=== PATIENT | female | born 1980 | race Caucasian/White ===

== ENCOUNTER 2024-10-18 12:55 | Outpatient (AMB) | payer BC, SELFPAY ==
--- NOTE | 2024-10-18 13:13 | MHC.PC.OV ---
Vital Signs 10/18/24 13:15 Height 5 ft 5.75 in Weight 136 lb BMI 22.1 BP 130/68 Blood Pressure Location Lt brachial Position Sitting Pulse 89 Pulse Source Pulse Oximeter Temp 97.3 F Temp Source Temporal Artery Scan Pulse Oximetry (%) 99 Oxygen Delivery Method Room Air Intake Visit Reasons: establish care Intake Note: Patient is a new patient here to establish care for Wellness. Transferring care from [place] ([facility]) . Medical records have been requested and have not received. Fruit Grower Required: No Ice Guard Inspector: Not Required per policy Accompanied by: Self / Same As Patient Allergies No Known Allergies Allergy (Verified 10/18/24 13:26) Medication List - Last Reconciled 10/18/24 by Bre Barbosa PA-C Unobtainable Tobacco use date assessed: 10/18/24 Dental Screening Dental Screen Date: 10/18/24 Did you have a dental visit in the last 12 months?: Yes Did you have a dental problem in the last 6 months where you did not have access to dental care?: No Was dental information given to patient?: Patient has dentist HPI establish care HPI Details 44-year-old female coming to the office with the 1st time. Previously being seen in [place] practice. She follows with [facility] as well as [facility] in his up-to-date on her Pap smears and mammograms. She is a current smoker smokes about 5 cigarettes a day and is not interested in quitting at this time. Follows with an vacuum spindle sander through [place] for monthly allergy shots. She has no acute concerns today. 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 1. Little interest or pleasure in doing things: not at all 2. Feeling down, depressed, or hopeless: not at all 3. Trouble falling or staying asleep, or sleeping too much: not at all 4. Feeling tired or having little energy: not at all 5. Poor appetite or overeating: not at all 6. Feeling bad about yourself - or that you are a failure or have let yourself or your family down: not at all 7. Trouble concentrating on things, such as reading the newspaper or watching television: not at all 8. Moving or speaking so slowly that other people could have noticed. Or the opposite - being so fidgety or restless that you have been moving around a lot more than usual: not at all 9. Thoughts that you would be better off or of hurting yourself in some way: not at all Total score: 0 Depression Screening Interpretation: Negative Depression Screening Done: Yes 73206 - PHQ-9 Billing: Yes Source: Developed by Drs. Gurwinder Mayen, Ayla Mitchell, Tra Cortes and colleagues, with an educational zulema from [employer]. Thrive Questionnaire I am a: Patient What is your living situation today?: I have a steady place to live Within the past 12 months, did the food you bought not last and you didn't have the money to get more?: Never true Within the past 12 months, did you worry whether your food would run out before you got money to buy more?: Never true Do you have trouble paying for medicines?: No Do you have trouble getting transportation to medical appointments?: No Do you have trouble paying your heating and electricity bill?: No Do you have trouble taking care of your child, family member or friend?: No Do you have trouble with day-to-day activities such as bathing, preparing meals, shopping, managing finances, etc.?: No Are you currently unemployed and looking for a job?: No Are you interested in more education?: No Please select the resources that you would like help with: None Currently or been in a relationship where the following occur: No concerns reported THRIVE Score: 0 AUDIT C Alcohol Use Questionnaire (AUDIT-C) 1. How often do you have a drink containing alcohol?: Monthly or less 2. How many drinks containing alcohol do you have on a typical day when you are drinking?: 1 or 2 3. How often do you have six or more drinks on one occasion?: Never Total Score: 1 LAYLA-7 AMB Questionnaire LAYLA-7 Feeling nervous, anxious, or on edge: 0 = Not at all Not being able to stop or control worryin = Not at all Worrying too much about different things: 0 = Not at all Trouble relaxin = Not at all Being so restless that it is hard to sit still: 0 = Not at all Becoming easily annoyed or irritable: 0 = Not at all Feeling afraid as if something awful might happen: 0 = Not at all Total LAYLA-7 score (0-4 normal; 5-9 mild; 10-14 moderate; 15-21 severe): 0 Source: Developed by Drs. Gurwinder Mayen, Ayla Mitchell, Tra Cortes and colleagues, with an educational zulema from [employer]. LAYLA-7 Assessment Billing LAYLA-7 Assessment Tool: LAYLA-7 Assessment 19198 Review of Systems Const Denies body aches, Denies chills, Denies fever(s), Denies headache(s) and Denies poor appetite Eyes Reports no additional complaints ENT Denies dysphagia, Denies dizziness, Denies headache(s) and Denies odynophagia Card Denies chest pain, Denies syncope, Denies edema, Denies irregular heart rhythm, Denies lightheadedness and Denies dyspnea Resp Denies cough and Denies dyspnea GI Denies abdominal pain, Denies constipation, Denies dysphagia, Denies diarrhea, Denies nausea, Denies odynophagia and Denies vomiting Reports no additional complaints Musc Reports no additional complaints and Denies abnormal gait Skin/Breast Reports system reviewed and no additional complaints, except as documented Neuro Denies abnormal gait, Denies dizziness, Denies syncope and Denies headache(s) Psych Reports no additional complaints Physical exam (Primary Care) Vital Signs: Last Vital Signs Temp 97.3 F 10/18/24 13:15 Pulse 89 10/18/24 13:15 BP 130/68 10/18/24 13:15 Pulse Ox 99 10/18/24 13:15 Oxygen Delivery Method Room Air 10/18/24 13:15 BMI result Body Mass Index 22.1 Tobacco/Smoking Status: Tobacco use Status Tobacco use date assessed 10/18/24 10/18/24 13:25 Patient Tobacco Use Status Current everyday Tobacco 10/18/24 13:25 Tobacco use type Cigarette 10/18/24 13:25 e-Cigarette/Vaping Use Never Used 10/18/24 13:25 Are you ready to quit: No Tobacco cessation counseling provided: Yes Items discussed: Nicotine replacement Relapse Prevention: discussed dietary, exercise and/or lifestyle changes CPT code: Less than 3 minutes PHQ-9: PHQ-9 Score PHQ-9: Total score 0 10/18/24 13:25 Depression Screening Interpretation: Negative Currently or been in a relationship where the following occur: No concerns reported Const General: cooperative, healthy appearing, comfortable and no acute distress Orientation/consciousness: patient oriented x3 HENMT Head: Yes normocephalic Ears: hearing grossly normal bilaterally General nose exam: Normal external nose present Eyes General: appearance normal, both eyes and all related structures Conjunctivae: conjunctivae normal Neck Neck: Yes full ROM and Yes no lymphadenopathy Resp Effort & Inspection: normal respiratory effort Auscultation: clear to auscultation bilaterally, no crackles, no rales, no rhonchi and no wheezes Cardio Rate: regular rate Rhythm: regular rhythm GI Palpation (GI): Soft to palpation, not firm and nontender Skin General skin exam: no rashes or lesions noted Neuro General: patient oriented x3 Gait exam (Neuro): Normal gait present Extrem General: Yes normal to inspection, Yes full ROM and No edema Psych Affect: normal affect Attitude: cooperative Insight: Good insight present (Psych) Judgement: Good judgement present (Psych) Coding Level of Care Code New Pt Level 3 (89120) Diagnoses Tobacco use disorder F17.200 Seasonal allergies J30.2 Pancreatitis K85.90 Screening for hypercholesterolemia Z13.220 Screening for diabetes mellitus Z13.1 Encounter for vitamin deficiency screening Z13.21 Screening for thyroid disorder Z13.29 Additional Codes PHQ-9 - 61482 - PHQ-9 Billing: Yes ([id number]) LAYLA-7 Assessment Billing - LAYLA-7 Assessment Tool: LAYLA-7 Assessment 45295 ([id number]) Assessment & Plan Assessment & Plan (1) Tobacco use disorder: Code(s): F17.200 - Nicotine dependence, unspecified, uncomplicated Category: Medical Plan: Smoking cigarettes and the use of tobacco can be harmful. We discussed the importance of stopping and options to aid in smoking cessation. Declining nicotine replacement therapy or medication management at this time. (2) Seasonal allergies: Code(s): J30.2 - Other seasonal allergic rhinitis Category: Medical Plan: Patient currently following with an vacuum spindle sander in [place] and having monthly allergy shots. (3) Pancreatitis: Code(s): K85.90 - Acute pancreatitis without necrosis or infection, unspecified Category: Medical Plan: Patient reports she was recently diagnosed with pancreatitis due to an elevated lipase level without an underlying cause. She is not drink alcohol in excess and does not have a gallbladder. She is currently following with [facility] plan to obtain these notes. She is asymptomatic at this time denies any abdominal pain or stool changes. (4) Screening for hypercholesterolemia: Code(s): Z13.220 - Encounter for screening for lipoid disorders Category: Medical Plan: Blood work ordered (5) Screening for diabetes mellitus: Code(s): Z13.1 - Encounter for screening for diabetes mellitus Category: Medical Plan: Blood work ordered (6) Encounter for vitamin deficiency screening: Code(s): Z13.21 - Encounter for screening for nutritional disorder Category: Medical Plan: Blood work ordered (7) Screening for thyroid disorder: Code(s): Z13.29 - Encounter for screening for other suspected endocrine disorder Category: Medical Plan: Blood work ordered Plan This note was constructed using voice recognition software. While every effort has been made to ensure accuracy and bodywork therapist, still areas may have been included sometimes these areas may affect the content or meeting of the given symptoms. Total time spent caring for the patient today was 30 minutes. This includes time spent before the visit reviewing the chart, time spent during the visit, and time spent after the visit and documentation. Patient was informed and verbally consented to the use of an ambient scribe for clinic note documentation during this visit. Orders: Orders Hemoglobin A1c Today Z13.1 - Encounter for screening for diabetes mellitus Vitamin D 25-OH Total Today Z00.00 - Encounter for general adult medical examination without abnormal findings, Z13.21 - Encounter for screening for nutritional disorder Lipase Today K85.90 - Acute pancreatitis without necrosis or infection, unspecified Lipid Panel Today Z13.220 - Encounter for screening for lipoid disorders Free T4 (Free Thyroxine) Today Z00.00 - Encounter for general adult medical examination without abnormal findings, Z13.29 - Encounter for screening for other suspected endocrine disorder Comprehensive Met. Panel Today K85.90 - Acute pancreatitis without necrosis or infection, unspecified, Z00.00 - Encounter for general adult medical examination without abnormal findings Vitamin B12 and Folate Today Z13.21 - Encounter for screening for nutritional disorder TSH reflex Free T4 Today Z13.29 - Encounter for screening for other suspected endocrine disorder CT NG by PCR Today Z00.00 - Encounter for general adult medical examination without abnormal findings
[2024-10-18 13:15] VITALS: BP 130/68; PULSE 89; TEMP 36.3; O2SAT 99; BMI 22.1
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
== END 2024-10-18 13:49 | disposition home or self-care (01) ==
DX: F17.200 Nicotine dependence, unspecified, uncomplicated (principal); J30.2 Other seasonal allergic rhinitis; K85.90 Acute pancreatitis without necrosis or infection, unspecified; Z13.220 Encounter for screening for lipoid disorders; Z13.1 Encounter for screening for diabetes mellitus; Z13.21 Encounter for screening for nutritional disorder; Z13.29 Encounter for screening for other suspected endocrine disorder

== ENCOUNTER → 2024-10-18 12:55 | Outpatient (BNVA) | payer BC, SELFPAY | DX: J30.2 Other seasonal allergic rhinitis (principal); K85.90 Acute pancreatitis without necrosis or infection, unspecified; F17.210 Nicotine dependence, cigarettes, uncomplicated | CPT/HCPCS: 96127 ==

== ENCOUNTER 2025-01-18 15:26 | Outpatient (AMB) | payer BC, SELFPAY ==
--- NOTE | 2025-01-18 15:30 | A.OFFPC_ITS ---
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: No Accompanied by: Self / Same As Patient Allergies No Known Allergies Allergy (Verified 01/18/25 15:46) Medication List - Last Reconciled 01/18/25 by Bre Barbosa PA-C sucralfate 1 g PO QIDACHS Tobacco use date assessed: 01/18/25 Dental Screening Dental Screen Date: 01/18/25 Did you have a dental visit in the last 12 months?: Yes Did you have a dental problem in the last 6 months where you did not have access to dental care?: No Was dental information given to patient?: No HPI 3mth f/u HPI Details 44-year-old female with past medical his tory of macro use disorder and history of pancreatitis last seen 11/10 coming in for follow up. Presenting for follow-up care and evaluation of previous medical conditions. The patient reports experiencing acid reflux, which was confirmed during an endoscopy showing mild inflammation in the stomach due to acid. The patient was advised to take medication as needed, up to four times a day, to manage symptoms. Dietary modifications were discussed to help manage symptoms, i ncluding avoiding tomato-based products, citrus, caffeine, and smoking. The patient had an episode of pancreatitis, with no clear cause identified from common factors such as gallstones, alcohol, or high triglycerides. The patient reports no recurrence of severe pain since the initial episode. She recently completed blood work through [facility] all of which was within normal limits. 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 1. Little interest or pleasure in doing things: not at all 2. Feeling down, depressed, or hopeless: not at all 3. Trouble falling or staying asleep, or sleeping too much: not at all 4. Feeling tired or having little energy: not at all 5. Poor appetite or overeating: not at all 6. Feeling bad about yourself - or that you are a failure or have let yourself or your family down: not at all 7. Trouble concentrating on things, such as reading the newspaper or watching television: not at all 8. Moving or speaking so slowly that other people could have noticed. Or the opposite - being so fidgety or restless that you have been moving around a lot more than usual: not at all 9. Thoughts that you would be better off or of hurting yourself in some way: not at all Total score: 0 Depression Screening Interpretation: Negative Depression Screening Done: Yes 84900 - PHQ-9 Billing: Yes Source: Developed by Drs. Gurwinder Mayen, Ayla Mitchell, Tra Cortes and colleagues, with an educational zulema from [facility]. Thrive Questionnaire Date Thrive assessed: 10/18/24 I am a: Patient What is your living situation today?: I have a steady place to live Within the past 12 months, did the food you bought not last and you didn't have the money to get more?: Never true Within the past 12 months, did you worry whether your food would run out before you got money to buy more?: Never true Do you have trouble paying for medicines?: No Do you have trouble getting transportation to medical appointments?: No Do you have trouble paying your heating and electricity bill?: No Do you have trouble taking care of your child, family member or friend?: No Do you have trouble with day-to-day activities such as bathing, preparing meals, shopping, managing finances, etc.?: No Are you currently unemployed and looking for a job?: No Are you interested in more education?: No Please select the resources that you would like help with: None Currently or been in a relationship where the following occur: No concerns reported THRIVE Score: 0 AUDIT C Alcohol Use Questionnaire (AUDIT-C) 1. How often do you have a drink containing alcohol?: Monthly or less 2. How many drinks containing alcohol do you have on a typical day when you are drinking?: 1 or 2 3. How often do you have six or more drinks on one occasion?: Never Total Score: 1 LAYLA-7 AMB Questionnaire LAYLA-7 Date LAYLA - 7 assessed: 01/18/25 Feeling nervous, anxious, or on edge: 0 = Not at all Not being able to stop or control worryin = Not at all Worrying too much about different things: 0 = Not at all Trouble relaxin = Not at all Being so restless that it is hard to sit still: 0 = Not at all Becoming easily annoyed or irritable: 0 = Not at all Feeling afraid as if something awful might happen: 0 = Not at all Total LAYLA-7 score (0-4 normal; 5-9 mild; 10-14 moderate; 15-21 severe): 0 Source: Developed by Drs. Gurwinder Mayen, Ayla Mitchell, Tra Cortes and colleagues, with an educational zulema from [facility]. LAYLA-7 Assessment Billing LAYLA-7 Assessment Tool: LAYLA-7 Assessment 60062 Review of Systems Const Denies body aches, Denies chills, Denies fever(s), Denies headache(s) and Denies poor appetite Eyes Reports no additional complaints ENT Denies dysphagia, Denies dizziness, Denies headache(s) and Denies odynophagia Card Denies chest pain, Denies syncope, Denies edema, Denies irregular heart rhythm, Denies lightheadedness and Denies dyspnea Resp Denies cough and Denies dyspnea GI Reports abdominal pain (Intermittent epigastric pain), Denies constipation, Denies dysphagia, Denies diarrhea, Denies nausea, Denies odynophagia and Denies vomiting Reports no additional complaints Musc Reports no additional complaints and Denies abnormal gait Skin/Breast Reports system reviewed and no additional complaints, except as documented Neuro Denies abnormal gait, Denies dizziness, Denies syncope and Denies headache(s) Psych Reports no additional complaints Physical exam (Primary Care) Vital Signs: Last Vital Signs Pulse 91 01/18/25 15:33 BP 112/72 01/18/25 15:33 Pulse Ox 99 01/18/25 15:33 BMI result Body Mass Index 22.4 Tobacco/Smoking Status: Tobacco use Status Tobacco use date assessed 01/18/25 01/18/25 15:37 Patient Tobacco Use Status Current everyday Tobacco 01/18/25 15:37 Tobacco use type Cigarette 01/18/25 15:37 e-Cigarette/Vaping Use Never Used 01/18/25 15:37 PHQ-9: PHQ-9 Score PHQ-9: Total score 0 01/18/25 15:45 Depression Screening Interpretation: Negative Thrive Assessment: Date of Thrive Assessment Date Thrive assessed 10/18/24 01/18/25 15:37 Currently or been in a relationship where the following occur: No concerns reported Const General: cooperative, healthy appearing, comfortable and no acute distress Orientation/consciousness: patient oriented x3 HENMT Head: Yes normocephalic Ears: hearing grossly normal bilaterally General nose exam: Normal external nose present Eyes General: appearance normal, both eyes and all related structures Conjunctivae: conjunctivae normal Neck Neck: Yes full ROM and Yes no lymphadenopathy Resp Effort & Inspection: normal respiratory effort Auscultation: clear to auscultation bilaterally, no crackles, no rales, no rhonchi and no wheezes Cardio Rate: regular rate Rhythm: regular rhythm Skin General skin exam: no rashes or lesions noted Neuro General: patient oriented x3 Gait exam (Neuro): Normal gait present Extrem General: Yes normal to inspection, Yes full ROM and No edema Psych Affect: normal affect Attitude: cooperative Insight: Good insight present (Psych) Judgement: Good judgement present (Psych) Coding Level of Care Code Est Pt Level 3 (82185) Diagnoses Tobacco use disorder F17.200 Seasonal allergies J30.2 Pancreatitis K85.90 GERD (gastroesophageal reflux disease) K21.9 Additional Codes LAYLA-7 Assessment Billing - LAYLA-7 Assessment Tool: LAYLA-7 Assessment 04008 ([id number]) PHQ-9 - 80914 - PHQ-9 Billing: Yes ([id number]) Assessment & Plan Assessment & Plan (1) Tobacco use disorder: Code(s): F17.200 - Nicotine dependence, unspecified, uncomplicated Category: Medical Plan: Smoking cigarettes and the use of tobacco can be harmful. We discussed the importance of stopping and options to aid in smoking cessation. Declining nicotine replacement therapy or medication management at this time. (2) Seasonal allergies: Code(s): J30.2 - Other seasonal allergic rhinitis Category: Medical Plan: Patient currently following with an float tender in [place] and having monthly allergy shots. (3) Pancreatitis: Code(s): K85.90 - Acute pancreatitis without necrosis or infection, unspecified Category: Medical Plan: Patient reports she was recently diagnosed with pancreatitis due to an elevated lipase level without an underlying cause. She is not drink alcohol in excess and does not have a gallbladder. She is currently following with [facility]. (4) GERD (gastroesophageal reflux disease): Code(s): K21.9 - Gastro-esophageal reflux disease without esophagitis Category: Medical Plan: Avoid trigger foods such as citrus, tomato products, soda, caffeine, spicy foods and other foods that may be irritating to your stomach. Avoid laying flat 3-4 hours after eating and elevate the head of the bed 30 degrees to prevent acid from moving into the esophagus. Continue on Sucralfate. Recent endoscopy revealing mild bile gastritis and GI recommending sucralfate as needed. Plan This note was constructed using voice recognition software. While every effort has been made to ensure accuracy and sales order coordinator, still areas may have been included sometimes these areas may affect the content or meeting of the given symptoms. Total time spent caring for the patient today was 30 minutes. This includes time spent before the visit reviewing the chart, time spent during the visit, and time spent after the visit and documentation. Patient was informed and verbally consented to the use of an ambient scribe for clinic note documentation during this visit.
[2025-01-18 15:33] VITALS: BP 112/72; PULSE 91; O2SAT 99; BMI 22.4
--- OUTSIDE RECORDS SUMMARY | 2025-01-18 16:28 | XMS_ITS | Clinical Summary ---
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 10/22/2024 6:[address] [facility] Alkaline Phosphatase 60 42 - 121 unit/L LAB CHEMISTRY METHOD 10/22/2024 6:[address] [facility] Total Protein 7.2 6.0 - 8.0 g/dL LAB CHEMISTRY METHOD 10/22/2024 6:55 PM EDT [facility] Albumin 4.2 3.2 - 5.0 g/dL LAB CHEMISTRY METHOD 10/22/2024 6:55 PM EDT [facility] Total Bilirubin 1.3 0.0 - 1.4 mg/dL LAB CHEMISTRY METHOD 10/22/2024 6:55 PM EDT [facility] Blood Venous blood specimen / Unknown Venipuncture / Unknown 10/22/2024 2:59 PM EDT 10/22/2024 2:59 PM EDT Bre RAMÍREZ LAB BLOOD ORDERABLES Final Re sult [facility] [address] [place] [address], * Cervical Cancer Screening: HPV (06/12/2022) Pathologist [facility] Cervical Cancer Screening: HPV negative, abstracted Historical Provider HEALTH MAINTENANCE Final Result from Last 3 Months or Most Recently Relevant to Health Maintenance Insurance [facility] Care Teams Outcomes Manager Relationship Specialty Start Date End Date Physician, No Pcp PCP - General 05/31/24
--- OUTSIDE RECORDS SUMMARY | 2025-01-18 16:28 | XMS_ITS | Encounter Summary ---
Author Organization [facility] Address [address] [place] [phone] Phone Care Team Providers Care Police Commissioner Name Role Phone Pcp, Not Required Primary Care Provider Unavaila ble Encounter Details Date Type Department Care Team (Late st Contact Info) Description 02/03/2024 Procedure Pass [facility] DEPT [address] [place] [id number] Social History Tobacco Use Types Packs/Day Years Used Date Smoking Tobacco: Every Day Cigarettes Smokeless Tobacco: Never Alcohol Use Standard Drinks/Week Comments Not Currently 0 (1 standard drink = 0.6 oz pur e alcohol) Education Answer Date Recorded Are you interested in more education? Not on kelly e 09/19/2023 Are you concerned about learning? Not on file 09/19/2023 No 09/19/2023 No 09/19/2023 Digital Access Answer Date Recorded No 09/19/2023 No 09/19/2023 Reliable internet access at home? Not on file 09/19/2023 Device with a working camera? Not on file Intimate Partner Violence Answer Date R ecorded Are you denied basic needs s uch as food, clothing, or medical care? No 02/03/2024 In the past 12 months have y ou been in a relationship with a person who hurts, threatens, or tries to control you? No 02/03/2024 Are you denied basic needs s uch as food, clothing, or medical care? No 02/03/2024 In the past 12 months have y ou been in a relationship with a person who hurts, threatens, or tries to control you? No 02/03/2024 Comments No Sex and Gender Information Value Date Recorded Sex Assigned at Not on file Legal Sex Female 1:40 PM EDT Gender Identity Not on file Sexual Orientation Not on file documented as of this encounter Plan of Treatment Not on file documented as of this encounter Visit Diagnoses Not on filedocumented in this encounter Care Teams Police Commissioner Relationship Specialty Start Date End Date Pcp, Not Required [address] [place] [id number] PCP - General 01/21/24 documented as of this encounter Additional Source Comments The information contained in this document represents components of the legal health record. It is not the complete legal health record.[facility]
--- OUTSIDE RECORDS SUMMARY | 2025-01-18 16:28 | XMS_ITS | Clinical Summary ---
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 Active Medication-Free Text ALLERGY INJECTION NEXT INJECTION DUE 02/09 Active cholecalciferol (VITAMIN D3) 25 MCG (1,000 unit) tablet Take 1,000 Units by mouth daily. Active Medication-Free Text KMK-7 Active moxifloxacin (VIGAMOX) 0.5 % ophthalmic solution Place 1 drop into the right eye 4 (four) times a day. Start after surgery 3 mL 1 4 Active Additional Information Patient not taking.Reported on 03/04/2024 prednisoLONE acetate (PRED FORTE) 1 % ophthalmic suspension Place 1 drop into the right eye 4 (four) times a day. Start after surgery 5 mL 1 4 Active ketorolac (ACULAR) 0.5 % ophthalmic solution Place 1 drop into the right eye 4 (four) times a day. Ok to substitute with Ketorolac 0.4%, same sig. Start after surgery. 5 mL 1 4 Active Additional Information Patient not taking.Reported on 03/04/2024 Active Problems No known active problems Family History Medical History Relation Comments Diabetes Neg Hx Glaucoma Neg Hx Macular degeneration Neg Hx Social History Tobacco Use Types Packs/Day Years Used Date Smoking Tobacco: Every Day Cigarettes Smokeless Tobacco: Never Tobacco Cessation:Ready to Q uit: Not Asked; Counseling Given: Not Answered Alcohol Use Standard Drinks/Week Comments Not Currently [...] on file Sexual Orientation Not on file Last Filed Vital Signs Vital Sign Reading Time Taken Comments Blood Pressure 117/75 02/03/2024 9:46 AM EDT Pulse 70 02/03/2024 9:46 AM EDT Temperature 36.6 C (97.8 F) 02/03/2024 9:27 AM EDT Respiratory Rate 18 02/03/2024 9:27 AM EDT Oxygen Saturation 98% 02/03/2024 9:46 AM EDT Inhaled Oxygen Concentration - - Weight 59.9 kg (132 lb) 02/03/2024 7:29 AM EDT Height 167.6 cm (5' 6 ) 02/03/2024 7:29 AM EDT Body Mass Index 21.31 02/03/2024 7:29 AM EDT Plan of Treatment Health Maintenance Due Date Last Done Comments Adult Td,Tdap Booster 1980 DEPRESSION SCREENING 1992 SMOKING Hx and SMOKELESS TOBACCO SCREENING 1993 HEPATITIS C SCREENING 1998 HIV ONE-TIME SCREENING (18-6 5 YEARS) 1998 PNEUMOCOCCAL VACCINES (0-49 years) (1 of 2 - PCV) 09/23/1999 PAP SMEAR 2001 COVID-19 VACCINE (2023-2 5 season) 2024 06/14/2021, 10/08/2020, 09/17/2020 MAMMOGRAM 10/03/2025 10/04/2023 HEPATITIS A VACCINES Aged Out No long er eligible based on patient's age to complete this topic HIB VACCINES Aged Out No longer eligi ble based on patient's age to complete this topic MENINGOCOCCAL VACCINES (ACWY) Aged Out No longer eligible based on patient's age to complete this topic MENINGOCOCCAL VACCINES (B) Aged Out N o longer eligible based on patient's age to complete this topic Medical Devices Implanted Type Area Research And Development Researcher Device Identifier Shelf Expiration Date Model / Serial / Lot Lens Intraocular Tecnis Radhahance Dib00 19.0d - [id number] Implanted:Qty: 1 on 02/03/2024 by Vivi Eisenberg MD at [facility] Lens Right: Eye [employer] 11/23/2026 [id number] / [id number] / Iud Ring Capsular Tension Eyejet P Ctr 14 - [id number] Implanted:Qty: 1 on 02/03/2024 by Vivi Eisenberg MD at [facility] Ear Right: Eye [employer] 10/16/2027 MR-14 RIGHT / [id number] 1966 / Insurance [facility] OUT OF STATE PPO BLUE CROSS OUT OF STATE PPO BLUE CROSS OUT OF STATE PPO [employer]UE [employer] OUT OF STATE PPO BLUE [employer]OSS OUT OF STATE PPO BLUE [employer] OUT OF STATE PPO Care Teams Fence Manufacture Supervisor Relationship Specialty Start Date End Date Pcp, Not Required [address] [place] [address] PCP - General 01/21/24 Additional Source Comments The information contained in this document represents components of the legal health record. It is not the complete legal health record.[facility]
== END 2025-01-18 16:04 | disposition home or self-care (01) ==
LOC: HO.HMCH 15:26
DX: F17.200 Nicotine dependence, unspecified, uncomplicated (principal); J30.2 Other seasonal allergic rhinitis; K85.90 Acute pancreatitis without necrosis or infection, unspecified; K21.9 Gastro-esophageal reflux disease without esophagitis

== ENCOUNTER → 2025-01-18 15:26 | Outpatient (BNVA) | payer BC, SELFPAY | DX: K21.9 Gastro-esophageal reflux disease without esophagitis (principal); K85.90 Acute pancreatitis without necrosis or infection, unspecified; J30.2 Other seasonal allergic rhinitis; F17.210 Nicotine dependence, cigarettes, uncomplicated | CPT/HCPCS: 96127 ==